=== PATIENT | male | born 1970 | race Caucasian/White ===

== ENCOUNTER 2020-02-23 19:08 | Inpatient (IN) | payer OTHER ==
[~2020-02-23] VITALS: Ht 170.2 cm; Wt 91.6 kg
[2020-02-23] MEDS ORDERED: SODIUM CHLORIDE 0.9% 1,000 ML IV ONE (19:44)
[2020-02-23] MEDS ORDERED: KETOROLAC 30MG/ML VIAL IV STA (19:44)
[2020-02-23] MEDS ORDERED: VANCOMYCIN 1 G PREMIX 200 ML IV ONE (19:45)
[2020-02-23] MEDS ORDERED: HYDROCODONE/ACETAMINOPHEN 5/325MG TABLET PO ONE (19:45)
[2020-02-23] MEDS ORDERED: PIPERACILLIN/TAZ 3.375G PREMIX 50 ML IV ONE (19:45)
[2020-02-23] MEDS ORDERED: LIDOCAINE HCL/EPINEPHRINE 1%-EPI 1:100,000 30 ML VIAL INFIL ONE (20:00)
[2020-02-23] MEDS ORDERED: LIDOCAINE HCL/EPINEPHRINE 1%-EPI 1:100,000 20 ML VIAL INFIL NR (20:00)
[2020-02-23 20:27] LABS: BASOPHILS % 0.8 % (0.0-2.0); EOSINOPHILS % 2.6 % (0.0-5.0); HEMATOCRIT. 38.3 % (42.0-52.0); HEMOGLOBIN. 13.6 g/dL (14.0-18.0); LYMPHOCYTES % 18.7 % (20.0-50.0); MEAN CORPUSCULAR HEMOGLOBIN 35.2 pg (28.0-32.0); MEAN CORPUSCULAR VOLUME 99.5 fL (80.0-94.0); MEAN PLATELET VOLUME 6.8 fl (7.4-10.4); MONOCYTES % 5.6 % (2.0-8.0); NEUTROPHILS % 72.3 % (40.0-76.0); PLATELET 248 x1000/uL (130-400); RED BLOOD CELL COUNT 3.85 mill/uL (4.7-6.1); RED CELL DISTRIBUTION WIDTH 11.9 % (11.6-14.6)
[2020-02-23 20:33] LABS: CHLORIDE 107 mEq/L (98-107)
[2020-02-23 20:36] LABS: PROTHROMBIN TIME 10.5 sec (9.6-11.0)
[2020-02-23] MEDS ORDERED: AMLO5TAB88 PO (23:51)
[2020-02-23] MEDS ORDERED: FENO160T9 PO (23:51)
[2020-02-24] VITALS (7 sets, daily range): BP systolic 106–130; BP diastolic 71–84
[2020-02-24] MEDS ORDERED: ONDANSETRON HCL 4MG/2ML INJ IV PRN
[2020-02-24] MEDS ORDERED: ACETAMINOPHEN 325MG TABLET PO PRN ×2
[2020-02-24] MEDS ORDERED: ZOLPIDEM TARTRATE 5MG TABLET PO PRN
[2020-02-24] MEDS ORDERED: VANCOMYCIN 1 G PREMIX 200 ML IV SCH
[2020-02-24] MEDS ORDERED: MAGNESIUM/ALUMINUM HYDROXIDE/SIMETHICONE 30ML UDC PO PRN
[2020-02-24] MEDS: SODIUM CHLORIDE 0.9% INJ 3ML FLUSH IVF SCH ×2 (06:22→14:05)
[2020-02-24] MEDS: VANCOMYCIN 1250MG in DEXTROSE 5% WATER 250ML IV SCH ×2 (06:22→17:04)
[2020-02-24 08:29] LABS: BASOPHILS % 0.7 % (0.0-2.0); EOSINOPHILS % 4.3 % (0.0-5.0); HEMATOCRIT. 36.1 % (42.0-52.0); HEMOGLOBIN. 12.9 g/dL (14.0-18.0); LYMPHOCYTES % 21.7 % (20.0-50.0); MEAN CORPUSCULAR HEMOGLOBIN 35.5 pg (28.0-32.0); MEAN CORPUSCULAR VOLUME 99.5 fL (80.0-94.0); MEAN PLATELET VOLUME 7.3 fl (7.4-10.4); MONOCYTES % 8.1 % (2.0-8.0); NEUTROPHILS % 65.2 % (40.0-76.0); PLATELET 248 x1000/uL (130-400); RED BLOOD CELL COUNT 3.62 mill/uL (4.7-6.1); RED CELL DISTRIBUTION WIDTH 12.1 % (11.6-14.6)
[2020-02-24 08:48] LABS: CHLORIDE 107 mEq/L (98-107)
[2020-02-24] MEDS ORDERED: LIDOCAINE HCL/EPINEPHRINE 1%-EPI 1:100,000 20 ML VIAL INFIL NR (11:45)
[2020-02-24] MEDS: KETOROLAC 30MG/ML VIAL IV PRN ×2 (12:06→20:48)
[2020-02-24] MEDS ORDERED: TETANUS, DIPHTHERIA, PERTUSSIS VAC/PF 0.5ML (>7YR OLD) IM ONE (16:30)
[2020-02-25] VITALS: BP 112/76
[2020-02-25] MEDS: SODIUM CHLORIDE 0.9% INJ 3ML FLUSH IVF SCH ×4 (00:38→22:30)
[2020-02-25 04:00] VITALS: BP 112/77
[2020-02-25] MEDS: VANCOMYCIN 1250MG in DEXTROSE 5% WATER 250ML IV SCH ×2 (05:14→18:01)
[2020-02-25 08:00] VITALS: BP 106/68
[2020-02-25] MEDS: KETOROLAC 30MG/ML VIAL IV PRN ×2 (08:52→18:00)
[2020-02-26] MEDS: KETOROLAC 30MG/ML VIAL IV PRN (05:33)
[2020-02-26] MEDS: VANCOMYCIN 1250MG in DEXTROSE 5% WATER 250ML IV SCH (05:34)
[2020-02-26] MEDS: SODIUM CHLORIDE 0.9% INJ 3ML FLUSH IVF SCH ×2 (05:47→13:54)
[2020-02-26 08:00] VITALS: BP 118/90
[2020-02-26 08:20] LABS: CHLORIDE 108 mEq/L (98-107)
[2020-02-26 12:00] VITALS: BP 118/90
[2020-02-26] MEDS ORDERED: VANCOMYCIN 1500MG in DEXTROSE 5% WATER 250ML IV SCH (14:00)
[2020-02-26 15:00] VITALS: BP 118/90
== END 2020-02-26 15:55 | disposition home or self-care (01) | DRG 989 ==
LOC: ER 19:08 → MICUSO 22:37 → EDBEDREQ 22:41 → EDBEDREQTM 22:41 → 6EST 02-24 02:29
PROVIDERS: ADMIT Internal Medicine; ATTEND Internal Medicine
PROC: 0SBC3ZZ Excision of Right Knee Joint, Percutaneous Approach (ICD-10-PCS; principal; 2020-02-24)
PROC: 0S9C30Z Drainage of Right Knee Joint with Drainage Device, Percutaneous Approach (ICD-10-PCS; 2020-02-24)
DX: L02.415 Cutaneous abscess of right lower limb (principal); L03.116 Cellulitis of left lower limb; M70.42 Prepatellar bursitis, left knee; M22.41 Chondromalacia patellae, right knee; Z83.3 Family history of diabetes mellitus
CPT/HCPCS: 36415; 73721; 80048; 80053; 80202; 83036; 84484; 85025; 87070; 87077; 90715; 96374; 99285; J1885; J2543; J3370; J3490; J7030; J7060